=== PATIENT | male | born 1960 | race Caucasian/White ===

== ENCOUNTER 2018-03-18 11:41 | Day surgery (SDC) | payer BC, MEDICARE ==
[2018-03-17 11:12] VITALS: BMI 43.3
[2018-03-18] MEDS ORDERED: Lidocaine 1% w/Epinephrine 1:100K 20 ML VIAL ONE (12:14)
[2018-03-18] MEDS ORDERED: Midazolam HCl 2 mg/2 ml Vial ONE ×2 (12:32→14:24)
[2018-03-18] MEDS ORDERED: Succinylcholine Chloride 20 MG/ML 10 ml SYRINGE FS ONE (13:08)
[2018-03-18] MEDS ORDERED: Lidocaine 1% PF 5 ML VIAL ONE (13:08)
[2018-03-18] MEDS ORDERED: Dexamethasone 20 MG/5 ML VIAL ONE (13:08)
[2018-03-18] MEDS ORDERED: PROPOFOL 200 MG/20 ML VIAL ONE (13:08)
[2018-03-18] MEDS ORDERED: Fentanyl 100 MCG/2 ML VIAL ONE ×3 (14:24→15:11)
[2018-03-18] MEDS ORDERED: Hydrocodone-Acetamin 15 ML UDCUP ONE (16:07)
--- NOTE | 2018-03-19 13:09 | OP ---
DATE OF PROCEDURE: 03/18/2018 PREOPERATIVE DIAGNOSIS: Right thyroid mass. POSTOPERATIVE DIAGNOSIS: Right thyroid follicular adenoma. PROCEDURE PERFORMED: Right thyroid lobectomy. PROCEDURE IN DETAIL: The patient was identified, brought to the operating room, and placed on the operating room table in the supine position. General endotracheal anesthesia was obtained with a laryngeal nerve monitoring, endotracheal tube. It was documented to be in position and functioning. The neck was extended and natural skin crease was identified and delineated with a marking pen. The patient was then prepped and draped, and 1% lidocaine 1:100,000 epinephrine was infiltrated into the lower neck incision line. A 15 blade was used and carried down through skin and subcutaneous tissues and through the platysmas. Bleeding was controlled with electrocautery. Subplatysmal flaps were elevated using the electrocautery. We then divided the strap muscles in midline and was able to remove the strap muscles from the thyroid capsule on the right. The thyroid was then mobilized and delivered into the wound, where the dissection continued carefully. The recurrent laryngeal nerve was identified and then followed towards to its insertion into the cricothyroid muscle. We then identified the superior middle and inferior vascular pole and suture ligated the vessels but then allowed for dissection of the thyroid from the pretracheal plane and division of the isthmus. The specimen was sent for histologic evaluation. Hemostasis was obtained. The wound was closed in multiple layers with absorbable suture. No drain was needed to be placed, and the patient was awakened, extubated, and taken to recovery room in stable condition prior to discharge home. Job ID: [id number]
--- NOTE | 2018-03-19 21:02 | EKG ---
Test Reason : PREOP Blood Pressure : / mmHG Vent. Rate : 077 BPM Atrial Rate : 077 BPM P-R Int : 162 ms QRS Dur : 108 ms QT Int : 376 ms P-R-T Axes : 045 031 084 degrees QTc Int : 425 ms Normal sinus rhythm Nonspecific ST and T wave abnormality Abnormal ECG No previous ECGs available Confirmed by Naseem DANG ([id number]) on 03/19/2018 9:02:31 PM Referred By: SHELTON Confirmed By:Naseem DANG
== END 2018-03-18 17:15 | disposition home or self-care (01) ==
LOC: SDC 11:41
PROVIDERS: ATTEND Specialist
PROC: 0GTH0ZZ Resection of Right Thyroid Gland Lobe, Open Approach (ICD-10-PCS; principal; 2018-03-18)
DX: E04.2 Nontoxic multinodular goiter (principal); D34 Benign neoplasm of thyroid gland; E11.9 Type 2 diabetes mellitus without complications; I10 Essential (primary) hypertension; Z87.891 Personal history of nicotine dependence; Z79.1 Long term (current) use of non-steroidal anti-inflammatories (NSAID); Z79.4 Long term (current) use of insulin; Z79.82 Long term (current) use of aspirin; Z79.899 Other long term (current) drug therapy; Z88.8 Allergy status to other drugs, medicaments and biological substances
CPT/HCPCS: 88307; 88342; 93005; 93010; 96374; J1100; J2001; J2250; J2704; J3010